=== PATIENT | male | born 1955 | race Hispanic/Latino ===

== ENCOUNTER 2017-12-27 00:25 | Observation (INO) | payer OTHER ==
--- NOTE | 2017-12-27 00:32 | ED PDOC ---
Arrival/HPI - General Time Seen by Provider: 12/27/17 00:26 Historian: Patient, Spouse, EMS - History of Present Illness Narrative History of Present Illness (Text): 12/27/17 00:32 Mahendra Ojeda is a 62 year old male smoker, whose past medical history includes atrial fibrillation on Eliquis and hypertension, who presents to the Emergency department brought in by ALS complaining of shortness of breath. Patient states he woke up with sudden onset of severe shortness of breath and palpitations prior to arrival. Patient and his walked in to the EMS garage, who brought patient to the ED for further evaluation. Patient denies any fever, chills, demetrio st pain, abdominal pain, headache, dizziness, or any other complaints. Wood Bucker: Dr. Schmitz Time/Duration: Prior to Arrival Symptom Onset: Sudden Symptom Course: Unchanged Activities at Onset: Light Context: Walking Past Medical History - Provider Review Nursing Documentation Reviewed: Yes Family/Social History - Physician Review Nursing Documentation Reviewed: Yes Family/Social History: Unknown Family HX Allergies/Home Meds Allergies/Adverse Reactions: Allergies No Known Allergies Allergy (Verified 12/27/17 00:39) Home Medications: Home Meds Medication Instructions Recorded Confirmed Apixaban [Eliquis] 5 mg PO DAILY 12/27/17 12/27/17 Metoprolol Succinate [Kapspargo 100 mg PO DAILY 12/27/17 12/27/17 Sprinkle] Rosuvastatin Calcium 10 mg PO QPM 12/27/17 12/27/17 Valsartan [Diovan] 160 mg PO DAILY 12/27/17 12/27/17 Review of Systems - Physician Review All systems were reviewed & negative as marked: Yes - Review of Systems Constitutional: Normal. absent: Fevers Eyes: Normal ENT: Normal Respiratory: SOB Cardiovascular: Palpitations Gastrointestinal: Normal. absent: Abdominal Pain, Diarrhea, Nausea, Vomiting Genitourinary Male: Normal. absent: Dysuria, Frequency, Hematuria, Urinary Output Changes Musculoskeletal: Normal. absent: Back Pain, Neck Pain Skin: Normal. absent: Rash Neurological: Normal. absent: Headache, Dizziness Endocrine: Normal Hemo/Lymphatic: Normal Psychiatric: Normal Physical Exam Vital Signs Reviewed: Yes Temperature: Afebrile Blood Pressure: Hypertensive Pulse: Tachycardic Respiratory Rate: Normal Appearance: Positive for: Well-Appearing, Non-Toxic, Comfortable Pain Distress: None Mental Status: Positive for: Alert and Oriented X 3 - Systems Exam Head: Present: Atraumatic, Normocephalic Pupils: Present: PERRL Extroacular Muscles: Present: EOMI Conjunctiva: Present: Normal Mouth: Present: Moist Mucous Membranes Neck: Present: Normal Range of Motion Respiratory/Chest: Present: Rhonchi (Rhonchi bilaterally). No: Respiratory Distress, Accessory Muscle Use Cardiovascular: Present: Normal S1, S2, Irregular Rhythm (Irregular, regular rhythm), Tachycardic. No: Murmurs Abdomen: No: Tenderness, Distention, Peritoneal Signs Back: Present: Normal Inspection Upper Extremity: Present: Normal Inspection. No: Cyanosis, Edema Lower Extremity: Present: Normal Inspection. No: Edema Neurological: Present: GCS=15, CN II-XII Intact, Speech Normal Skin: Present: Warm, Dry, Normal Color. No: Rashes Psychiatric: Present: Alert, Oriented x 3, Normal Insight, Normal Concentration Medical Decision Making ED Course and Treatment: 12/27/17 00:32 Impression: 62 year old male complaining of sudden onset of shortness of breath and palpitations tonight. Plan: -- EKG -- Chest X-ray -- Labs, cardiac enzymes, BNP, D-dimer -- Duoneb -- Reassess and disposition Progress Notes: Reviewed EKG, a fib at [address] bpm[address] Non-specific ST/T wave changes. 12/27/17 02:02 CXR reviewed, shows: The cardiac silhouette is moderately enlarged. There is mild central pulmonary venous congestion. There is bilateral peribronchial interstitial thickening suggestive of bronchitis. There are changes of degenerative joint disease. Impression: Congestive heart failure. Bronchitis. Electronically signed on Dec 27, 2017 1:49:50 AM EDT by: Marla Branham M.D., Certified by ABR, MSK, Neuroradiology 12/27/17 02:16 Reviewed repeat EKG, NSR at 77 bpm. 1st degree AV block. No acute changes Case discussed with Dr. Will, who is aware and agrees with plan. Accepts pt in to her service. Pt will Telemetry observation for dyspnea. Requests Dr. Schmitz on consult. - Lab Interpretations I have reviewed the lab results: Yes - RAD Interpretation Tool Grinding Technician: Radiologist - EKG Interpretation Interpreted by ED Physician: Yes Type: 12 lead EKG - Scribe Statement The provider has reviewed the documentation as recorded by the Scribe Stephanie Garduno Provider Scribe Attestation: All medical record entries made by the Susannahibe were at my direction and personally dictated by me. I have reviewed the chart and agree that the record accurately reflects my personal performance of the history, physical exam, medical decision making, and the department course for this patient. I have also personally directed, reviewed, and agree with the discharge instructions and disposition. Disposition/Present on Arrival - Present on Arrival Any Indicators Present on Arrival: No History of DVT/PE: No History of Uncontrolled Diabetes: No Urinary Catheter: No History of Decub. Ulcer: No History Surgical Site Infection Following: None - Disposition Have Diagnosis and Disposition been Completed?: Yes Diagnosis: Dyspnea, Paroxysmal atrial fibrillation with rapid ventricular response Disposition: HOSPITALIZED Disposition Time: 02:27 Condition: STABLE
[2017-12-27 00:40] VITALS: BMI 26.6
[2017-12-27] MEDS ORDERED: Albuterol-Ipratrop 3 mg / 0.5 (3 ml) UD IH STA (00:43)
[2017-12-27 00:54] LABS: HEMOGLOBIN 17.3 g/dL (14.0-18.0); MEAN CORPUSCULAR HEMOGLOBIN 33.9 pg (25.0-35.0); MEAN CORPUSCULAR HGB CONC 33.5 g/dl (31.0-37.0); MEAN PLATELET VOLUME 9.9 fl (7.0-11.0); RBC 5.11 10^6/uL (3.5-6.1); RED CELL DISTRIBUTION WIDTH 13.2 % (11.5-14.5); WHITE BLOOD COUNT 13.4 10^3/ul (4.5-11.0)
[2017-12-27 01:23] LABS: ALB/GLOB RATIO 1.6 (1.1-1.8); ALBUMIN 4.3 g/dL (3.0-4.8); ALT/SGPT 61 U/L (7-56); AST/SGOT 32 U/L (17-59); BLOOD UREA NITROGEN 11 mg/dL (7-21); CALCIUM 8.9 mg/dL (8.4-10.5); GFR NON-AFRICAN AMERICAN > 60
[2017-12-27 01:25] LABS: INR 0.94; PARTIAL THROMBOPLASTIN TIME 27.3 Seconds (25.1-36.5); PROTHROMBIN TIME 10.7 SECONDS (9.4-12.5)
[2017-12-27 01:28] LABS: D DIMER < 200 ng/mlDDU (0-243)
[2017-12-27 01:35] LABS: B-TYPE NATRIURETIC PEPTIDE 230 pg/mL (0-450); TROPONIN I 0.02 ng/mL
[2017-12-27] MEDS ORDERED: cefTRIAXone 1 gm 1 GM/100 ML BAG IV STA (02:22)
[2017-12-27] MEDS ORDERED: Azithromycin 500MG/NS 250ml 500 MG/250 ML BAG IV STA (02:22)
[2017-12-27] MEDS: Albuterol-Ipratrop 3 mg / 0.5 (3 ml) UD IH PRN (05:40)
[2017-12-27 09:33] LABS: URINE BILIRUBIN NEGATIVE (NEGATIVE); URINE BLOOD TRACE-LYSED (NEGATIVE); URINE GLUCOSE (UA) NEGATIVE (NEGATIVE); URINE LEUKOCYTE ESTERASE NEGATIVE Leu/uL (NEGATIVE); URINE PROTEIN NEGATIVE mg/dL (<30 mg/dL); URINE UROBILINOGEN 0.2 E.U./dL (<1 E.U./dL)
[2017-12-27 09:34] LABS: URINE APPEARANCE CLEAR (CLEAR); URINE COLOR YELLOW (YELLOW)
[2017-12-27 09:49] LABS: URINE AMORPHOUS SEDIMENT FEW; URINE BACTERIA MANY (NEG); URINE EPITHELIAL CELLS 0 - 2 /hpf (0-5); URINE WBC 0 - 2 /hpf (0-6)
--- NOTE | 2017-12-27 09:58 | CARD ---
APPROVED REPORT Date of service: 12/27/2017 EKG Measurement Heart [id number] <Conclusion> Atrial fibrillation with rapid ventricular response [id number] changes
--- NOTE | 2017-12-27 10:01 | CARD ---
APPROVED REPORT Date of service: 12/27/2017 EKG Measurement Heart [id number] <Conclusion> Sinus rhythm with 1st degree AV block LAD AF with RVR no longer present
--- NOTE | 2017-12-27 10:14 | CARD ---
APPROVED REPORT Date of service: 12/27/2017 EKG Measurement Heart [id number] <Conclusion> Normal sinus rhythm with 1st degree AVB
--- NOTE | 2017-12-27 11:22 | RAD ---
Date of service: 12/27/2017 HISTORY: sob COMPARISON: No prior. FINDINGS: LUNGS: No focal infiltrates identified. PLEURA: No significant pleural effusion identified, no pneumothorax apparent. CARDIOVASCULAR: No atherosclerotic calcification present Cardiomegaly, pulmonary vascular congestion and interstitial edema. OSSEOUS STRUCTURES: No significant abnormalities. VISUALIZED UPPER ABDOMEN: Normal. OTHER FINDINGS: None. IMPRESSION: Mild CH Concordant findings (preliminary report) provided by [facility].
[2017-12-27] MEDS: Levalbuterol 0.63 MG/3 ML Inhal Soln UD IH SCH ×2 (13:52→19:55)
[2017-12-27] MEDS ORDERED: Potassium Chloride 20 mEq ER Tab PO ONE (15:04)
--- NOTE | 2017-12-27 20:43 | CON ---
DATE: 12/27/2017 CONSULTATION INDICATIONS: Shortness of breath, paroxysmal atrial fibrillation. HISTORY OF PRESENT ILLNESS: This is a 62-year-old male with a history of atrial fibrillation, who developed acute shortness of breath with heart racing and diaphoresis. He walked over to [facility] [place] and was taken to the emergency room. While in the emergency room, he had an EKG showing atrial fibrillation with rapid ventricular response. This apparently reverted to sinus rhythm. His symptoms resolved. This morning, he is resting comfortably in bed. 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 There was no chest pain. There is no orthopnea, PND, syncope, presyncope, lightheadedness, dizziness or vertigo. There are no ischemic-like symptoms, claudication, fever, chills, cough, sputum production, or hemoptysis. There is no abdominal pain, nausea, vomiting, diarrhea, constipation, melena. PAST MEDICAL HISTORY: Notable for cigarette smoking, hypertension, paroxysmal atrial fibrillation. He reports having a fairly recent cardiac cath which was normal. There is no history of rheumatic fever, myocardial infarction, angina, congestive heart failure, stroke, TIA, diabetes or gout. MEDICATIONS: At the time of admission include Eliquis, metoprolol, Crestor, and valsartan. ALLERGIES: There are no medication allergies reported. SOCIAL HISTORY: He lives at home. He is a smoker. He does not drink alcohol significantly. He is ambulatory. FAMILY HISTORY: Noncontributory. REVIEW OF SYSTEMS: A 10-point review of systems otherwise unremarkable except as noted above. PHYSICAL EXAMINATION: GENERAL: He is a well-developed male, resting in bed on telemetry, in no acute distress. VITAL SIGNS: Notable for sinus rhythm. He is afebrile. Pulse 78, blood pressure 148/86, respirations 18, O2 sat 98% on nasal cannula. HEENT: Exam reveals no neck vein distention, thyromegaly, carotid bruits. Mucous membranes moist. Conjunctivae pink. NECK: Supple. LUNGS: Lung landa clear. CARDIAC: Examination of the heart revealed a regular rhythm. Normal first and second heart sounds. PMI not palpable. ABDOMEN: Soft. Bowel sounds present. No mass, organomegaly, tenderness, rebound, guarding, CVA tenderness, or palpable abdominal aortic aneurysm. EXTREMITIES: Extremity exam revealed no cyanosis, clubbing or edema. There is no Homans' sign present. NEUROLOGICAL: Awake, alert and oriented. PSYCHIATRIC: Normal as to mood and affect. SKIN: Warm and dry. No rash or cellulitis. LABORATORY DATA: EKG initially showed atrial fibrillation with rapid ventricular response. There is a leftward axis, poor R-wave progression, nonspecific ST wave changes. Repeat EKG shows sinus rhythm, first-degree heart block, no acute changes. The chest x-ray is not read yet. The initial interpretation in the ER was CHF, but my reading is no definite CHF or pleural effusion or infiltrate. We await the final radiologist interpretation. White count 13,400, hemoglobin 17.3, hematocrit 51.6, platelet count normal. PT/INR, PTT normal. D-dimer less than 200. Electrolytes, BUN, creatinine, blood sugar unremarkable. Mild elevation of the ALT, CK 51. Two troponins are negative. BNP 230. IMPRESSION: The patient is a 62-year-old male smoker, who presented with acute shortness of breath, was found to have atrial fibrillation with rapid ventricular response. The symptoms and the atrial fib resolved in the emergency room. He was admitted to telemetry where he is resting comfortably today. There was no chest pain. There is no evidence of acute myocardial infarction. At this time, I will resume his metoprolol and Eliquis. I will review his office records and cath report. I will order an echocardiogram and a TSH level. He can be out of bed to a chair. We will check stool for occult blood. He will be on telemetry. I will follow along with you. I will make additional recommendations based on his clinical course. Enoch Hwang MD [facility]
[2017-12-28] MEDS: Albuterol-Ipratrop 3 mg / 0.5 (3 ml) UD IH PRN (03:37)
[2017-12-28 03:46] VITALS: O2SAT 97
[2017-12-28 07:09] LABS: BASO # 0.02 K/mm3 (0.0-2.0); BASO % 0.2 % (0.0-3.0); EOS # 0.2 (0.0-0.7); EOS % 2.1 % (1.5-5.0); GRAN # 6.67 (1.4-6.5); GRAN % 67.1 % (50.0-68.0); HEMOGLOBIN 15.7 g/dL (14.0-18.0); LYMPH # 2.2 (1.2-3.4); LYMPH % 21.7 % (22.0-35.0); MEAN CELL VOLUME 100.4 fl (80.0-105.0); MEAN CORPUSCULAR HEMOGLOBIN 33.8 pg (25.0-35.0); MEAN CORPUSCULAR HGB CONC 33.6 g/dl (31.0-37.0); MEAN PLATELET VOLUME 9.7 fl (7.0-11.0); MONO # 0.9 (0.1-0.6); MONO % 8.9 % (1.0-6.0); RBC 4.65 10^6/uL (3.5-6.1); RED CELL DISTRIBUTION WIDTH 13.1 % (11.5-14.5); WHITE BLOOD COUNT 9.9 10^3/ul (4.5-11.0)
[2017-12-28 07:22] LABS: ALB/GLOB RATIO 1.5 (1.1-1.8); ALT/SGPT 41 U/L (7-56); AST/SGOT 23 U/L (17-59); BLOOD UREA NITROGEN 15 mg/dL (7-21); CALCIUM 8.9 mg/dL (8.4-10.5); GFR NON-AFRICAN AMERICAN > 60; HDL CHOLESTEROL 43 mg/dL (29-60)
[2017-12-28 07:26] LABS: LDL CHOLESTEROL 118 mg/dL (0-129)
[2017-12-28] MEDS: Levalbuterol 0.63 MG/3 ML Inhal Soln UD IH SCH (07:36)
[2017-12-28 07:38] LABS: FREE T4 1.02 ng/dL (0.78-2.19)
--- NOTE | 2017-12-28 07:54 | CP.PCM.PN ---
Subjective - Date & Time of Evaluation Date of Evaluation: 12/28/17 Time of Evaluation: 07:00 - Subjective Subjective: Stable on 2R. He feels well. No CP or SOB. V/S noted. RSR. PE: Lungs: clear Cor.: S1S2 Abd.: soft Ext.: no edema Neuro.: alert I/O= 1380/777 Labs noted: BMP, CBC OK, LDL = 118, Free T4 NL BC X2 NG at 24 hrs. Echo: Nl LV. See report. Objective - Vital Signs/Intake and Output Vital Signs (last 24 hours): Temp Pulse Resp BP Pulse Ox 98.7 F 74 19 180/80 H 97 12/28/17 05:22 12/28/17 06:02 12/28/17 05:22 12/28/17 06:02 12/28/17 00:01 Intake and Output: 12/28/17 12/28/17 06:59 18:59 Intake Total 1380 Output Total 777 Balance 603 - Medications Medications: Current Medications Apixaban (Eliquis) 5 mg PO BID [facility]; Protocol Last Admin: 12/27/17 21:16 Dose: 5 mg Azithromycin (Zithromax) 500 mg PO DAILY [facility]; Protocol Clonidine HCl (Catapres) 0.1 mg PO Q4H PRN PRN Reason: hypertension Last Admin: 12/28/17 06:02 Dose: 0.1 mg Home Med (Home Med) 1 unit PO DIN [facility] Last Admin: 12/27/17 21:17 Dose: 1 unit Ceftriaxone Sodium (Rocephin 1 Gram Ivpb) 1 gm in 100 mls @ 100 mls/hr IVPB DAILY [facility]; Protocol Levalbuterol HCl (Xopenex) 0.63 mg IH TIDRESP [facility] Last Admin: 12/28/17 07:36 Dose: 0.63 mg Losartan Potassium (Cozaar) 100 mg PO DAILY [facility] Last Admin: 12/27/17 09:54 Dose: 100 mg Metoprolol Tartrate (Lopressor) 50 mg PO BID [facility] Last Admin: 12/27/17 21:17 Dose: 50 mg - Labs Labs: 12/28/17 06:00 12/28/17 06:00 PT 10.7 SECONDS (9.4-12.5) 12/27/17 01:04 INR 0.94 12/27/17 01:04 APTT 27.3 Seconds (25.1-36.5) 12/27/17 01:04 Assessment and Plan - Assessment and Plan (Free Text) Assessment: Dyspnea AF with RVR HBP H/O cath: Nl cors, Nl LV ~ 2016 Plan: Continue metoprolol, Eliquis and Crestor. Antihypertensives as per Dr. Suman LOZOYA ad gayla Check Abd. and Renal U/S results. Possible d/c home later today with out-pt cardiology f/u.
[2017-12-28 08:03] LABS: BILIRUBIN,DIRECT 0.4 mg/dL (0.0-0.4)
--- NOTE | 2017-12-28 09:58 | CARD ---
APPROVED REPORT Date of service: 12/27/2017 EXAM: Two-dimensional and M-mode echocardiogram with Doppler and color Doppler. Other Information Quality : FairRhythm : INDICATION Dyspnea HBP. PAF 2D DIMENSIONS Left Atrium (2D)4.0 (1.6-4.0cm)IVSd1.1 (0.7-1.1cm) LVDd4.8 (3.9-5.9cm)PWd1.0 (0.7-1.1cm) LVDs3.4 (2.5-4.0cm)FS (%) 29.2 % LVEF (%)56.0 (>50%) M-Mode DIMENSIONS Aortic Root3.10 (2.2-3.7cm)Aortic Cusp Exc.1.90 (1.5-2.0cm) Aortic Valve AoV Peak Shugtbva263.0cm/s Mitral Valve MV E Mrhbmope595.0cm/sMV A Flqzzdxl54.3cm/sE/A ratio2.2 TDI E/Lateral E'0.0E/Medial E'0.0 Tricuspid Valve TR Peak Fzaioets339mi/sRAP [id number] Peak Gr.16mmHg [id number] LEFT VENTRICLE The left ventricle is normal size. There is normal left ventricular wall thickness. The left ventricular function is normal. The left ventricular ejection fraction is within the normal range. There is normal LV segmental wall motion. RIGHT VENTRICLE The right ventricle is normal size. ATRIA The left atrium size is normal. The right atrium size is normal. The interatrial septum is intact with no evidence for an atrial septal defect. AORTIC VALVE The aortic valve is normal in structure. MITRAL VALVE The mitral valve is normal in structure. Mitral regurgitation is trace. TRICUSPID VALVE The tricuspid valve is normal in structure. There is trace tricuspid regurgitation. PULMONIC VALVE The pulmonic valve is not well visualized. There is trace pulmonic valvular regurgitation. <Conclusion> The left ventricle is normal size. There is normal left ventricular wall thickness. The left ventricular function is normal.
[2017-12-28] MEDS ORDERED: cefTRIAXone 1 gm 1 GM/100 ML BAG IVPB SCH (10:00)
--- NOTE | 2017-12-28 10:14 | HP ---
DATE OF EXAM: 12/27/2017 HISTORY OF PRESENT ILLNESS: This 62-year-old male was examined at his bedside on the Cardiac Unit at the [facility] on the afternoon of 12/27/2017. The patient had presented to [facility] earlier this morning. He told me he had awoken this morning with shortness of breath and palpitations. He immediately dressed and readied himself for presentation to the local emergency room. He said that while his was driving him to the ER, he became so short of breath that he requested her to stop at the local EMS office of [facility], so that he could get some oxygen treatment. While he was there, the paramedics applied nasal O2, then a Ventimask of O2 and transported him by ambulance to ER. There, he was noted to be in rapid atrial fibrillation, overt congestive heart failure and with clinical and radiographic evidence of CHF. He is admitted for further evaluation of the above. The patient states he has no primary care physician. He follows with Dr. Markell Schmitz from Cardiology and first requested his assistance approximately 1 year ago. He states that he was evaluated by Dr. Schmitz with previous cardiac cath, EKG and echocardiogram, all of which he reports were unremarkable. SOCIAL HISTORY: The patient is a current smoker. 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 He works with the [employer]. ALLERGIES: HE STATES HE HAS NO KNOWN ALLERGIES TO MEDICATION. MEDICATIONS: His outpatient medication included Eliquis 5 mg b.i.d., Diovan 160 mg p.o. daily, Crestor 10 mg p.o. daily and metoprolol succinate 100 mg p.o. daily. The patient admits to chronic hypertension, chronic atrial fibrillation and it should be noted that in the emergency room once the patient was given a treatment with DuoNeb nebulizer, he converted into a normal sinus rhythm on the cardiac tech. FAMILY HISTORY: Significant for two siblings dying with aortic abdominal aneurysm. Parental history is significant for mother dying of lung cancer and father of an acute myocardial infarction. The patient states he has had a hernia repair and tonsillectomy as a child. Denies any other surgical history and states he has never been hospitalized for any medical issues in the recent past. REVIEW OF SYSTEMS: Constitutional review: Denied fever or chills. Head review: No headache or seizure. Eyes review: No change in visual acuity. Ear review: No hearing loss. Throat review: No swallowing difficulty. Neck review: No stiffness. Cardiac review: Chronic hypertension and as per HPI. Pulmonary: No cough. No hemoptysis. GI: No hematemesis. No melena. : No dysuria. Skin: No rash. Vascular: No claudication. Psychological: No knowledge of depression. Neurological: No knowledge of stroke. PHYSICAL EXAMINATION: VITAL SIGNS: At the time of my interview, the patient was alert, oriented, wearing nasal O2, denying any fever, chills, chest pain or shortness of breath. Temperature was 97.9, respirations 18, pulse 68 and blood pressure 157/78. Monitor showed normal sinus rhythm. HEAD: Normocephalic, atraumatic. Eyes: No icterus. Ears clear. Throat: Noninjected. NECK: Supple. HEART: Was regular S1, S2. No pathological rubs, murmurs or gallops. LUNGS: Basilar crackles bilaterally. ABDOMEN: Soft. EXTREMITIES: No edema. SKIN: Without rash. NEUROLOGICAL: Intact. PSYCHOLOGICAL: Alert and oriented x3. Vascular: Legs warm to touch. LABORATORY DATA: White count 13,400, hemoglobin 17.3, hematocrit 51.6, platelets 210,000. PT/INR 0.94, PTT 27.3. Sodium 140, K 4.6, chloride 106, bicarb 26, BUN 11, creatinine 1.1, random blood sugar 122, calcium 8.9. Bilirubin 0.5, AST 32, ALT 61, alk phos 35. CPK 51 with a troponin of 0.02 and a BNP of 230. Free T4 was normal at 1.02. Repeat troponin was 0.02. Urinalysis showed 2-5 RBCs per high-power field. Chest x-ray was reviewed. It showed no focal infiltrates, no pleural effusion. It did show cardiomegaly with CHF and interstitial edema. EKG was reviewed. Initial emergency room EKG showed atrial fibrillation with rapid ventricular response and nonspecific ST-T wave changes and EKG performed on the Cardiac Unit showed a normal sinus rhythm with first-degree AV block and no further presence of atrial fibrillation. At the time of my interview, the patient was in a normal sinus rhythm. IMPRESSION: A 62-year-old male with history of chronic atrial fibrillation, now with exacerbation of chronic obstructive pulmonary disease, leukocytosis, acute congestive heart failure, probably secondary to rapid ventricular rate, now with conversion to normal sinus rhythm with comorbidities of hyperlipidemia, chronic hypertension, obesity, persistent cigarette smoking, leukocytosis and elevated liver function testing. PLAN: As discussed with the patient at bedside and also reviewed with his nurse, Rio Thompson, registered nurse, the patient will be scheduled for 2-D echocardiography and blood cultures have been sent. He will be given Lasix 20 mg IV x1 dose and potassium chloride, K-Dur 20 mEq p.o. x1 dose because of accelerated hypertension and his chest x-ray findings of congestive heart failure. I have ordered clonidine 0.1 mg p.o. every 4 hours p.r.n. accelerated hypertension if systolic blood pressure should be greater than 160 or diastolic blood pressure should be greater than 100. He is ordered to receive Cozaar 100 mg p.o. daily Eliquis 5 mg p.o. b.i.d., Crestor 10 mg p.o. daily, Lopressor 50 mg p.o. b.i.d., Rocephin 1 g IV every 24 hours, Xopenex inhalational therapy t.i.d., Zithromax 500 mg p.o. daily and I have requested an aortic abdominal ultrasound to rule out aortic aneurysm given strong family history. He will be scheduled for a heart-healthy soft bland diet. He is ordered to be out of bed to chair as tolerated to ambulate with assistance, to have I's and O's recorded and stool for occult blood. I will order a PSA and a renal ultrasound for completeness sake as well as repeat laboratories including CBC and basic metabolic panel for the morning. Based on his clinical progress and findings, additional workup and diagnostic testings will be entertained. I will discuss this case with Dr. Enoch Hwang from Cardiology and greater than 75 minutes was spent in the care management, review of labs, x-rays, EKGs, medication and outlining of orders for this patient today. All questions were answered. Nelly Will MD [facility]
[2017-12-28 11:52] VITALS: BP 138/92; PULSE 67; RESP 18; TEMP 98.4
--- NOTE | 2017-12-28 12:06 | US ---
Date of service: 12/28/2017 PROCEDURE: Ultrasound of the Kidneys HISTORY: microhematuria COMPARISON: None available. TECHNIQUE: Sonogram of the kidneys. FINDINGS: RIGHT KIDNEY: Measures: 11.4 x 5.2 x 6.4 cm. Normal in size, contour and echogenicity. No stone, solid mass lesion or hydronephrosis visualized. LEFT KIDNEY: Measures: 12.2 x 5.2 x 4.9 cm. Normal in size, contour and echogenicity. No stone, solid mass lesion or hydronephrosis visualized. OTHER FINDINGS: None. IMPRESSION: Unremarkable renal sonogram.
--- NOTE | 2017-12-28 12:30 | US ---
PROCEDURE: 1. Duplex ultrasound of the abdominal aorta. HISTORY: Abdominal aortic aneurysm. PHYSICIAN(S): Rishabh Albrecht MD. FINDINGS: The exam is very limited by bowel gas. The visualized abdominal aorta is normal in caliber without evidence of a abdominal aortic aneurysm. Mild diffuse atherosclerotic disease is noted. Limited imaging of the common iliac arteries proximally are normal in caliber. IMPRESSION: 1. No sonographic evidence of an abdominal aortic aneurysm
--- NOTE | 2017-12-29 13:37 | DS ---
HISTORY OF PRESENT ILLNESS: This 62-year-old male was examined at his bedside and cleared for discharge on the afternoon of 12/28/2017. Present for his discharge interview was nurse, Emy Ma, registered nurse. FINAL DIAGNOSES: Paroxysmal atrial fibrillation with rapid ventricular response, congestive heart failure improved, hyperlipidemia, accelerated hypertension, bronchitis. DISPOSITION: Home. The patient Is instructed to follow up in my office on 01/03/2018. The patient was seen by Dr. Enoch Hwang from Cardiology and cleared for discharge to home. DISCHARGE DIET: 2 g sodium, heart-healthy. DISCHARGE MEDICATIONS: Eliquis 5 mg p.o. b.i.d., Diovan 160 mg p.o. daily, Crestor 10 mg p.o. daily, metoprolol succinate 100 mg p.o. daily and Zithromax 250 mg p.o. daily, #5, no refill. 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 He was noted to have microhematuria, chronic hypertension and elevated white count on admission, which prompted blood cultures. These showed no growth at 48 hours. A chest x-ray was consistent with CHF and the patient underwent an echocardiogram that was unremarkable. It showed normal left ventricular wall motion, size and normal ejection fraction with a normal left atrial size as well. Initial EKG showed atrial fibrillation with rapid ventricular response. A followup EKG showed normal sinus rhythm with primary AV block. Chest x-ray on admission showed CHF, an aortic ultrasound was reviewed that was unremarkable and a renal ultrasound showed normal kidneys with no stone, mass or hydronephrosis. At the time of discharge, his temperature was 98.4, respirations 18, pulse 67 and blood pressure 138/92. Labs showed white count 9900, hemoglobin 15.7, hematocrit 46.7, platelets 173,000. Sodium 140, K 3.9, chloride 105, bicarb 27, BUN 15, creatinine 1.0, random blood sugar 103. Bilirubin 1.7, high normal being 1.3 or less. However, direct bilirubin was 0.4, normal. AST 23, ALT 41, alk phos 40. Troponin 0.02 x2. CPK normal 51. Cholesterol 178, triglycerides 175, LDL 118 and HDL 43. PSA 2.3. T4 normal at 1.02. TSH normal at 1.93. Urinalysis showed 2-5 rbc's per high-power field with many bacteria and urine culture was not available. The patient is discharged to home and advised to follow up in my office on Wednesday. He was advised to follow up with Dr. Hwang, Cardiology and has been strongly admonished against cigarette smoking. Hopefully, he will be compliant with this recommendation and the patient was also advised to present directly to the [facility] ER for any further signs or symptoms related to his presenting diagnosis. Nelly Will MD MTDD
== END 2017-12-28 13:19 | disposition home or self-care (01) ==
LOC: ED 00:25 → ERH 02:28 → 2RSO 03:14 → INTOOBSV 15:02 → OBSVTOIN 15:02
PROVIDERS: ADMIT Internal Medicine; ATTEND Internal Medicine
DX: I48.0 Paroxysmal atrial fibrillation (principal); I11.0 Hypertensive heart disease with heart failure; I50.9 Heart failure, unspecified; J40 Bronchitis, not specified as acute or chronic; F17.200 Nicotine dependence, unspecified, uncomplicated; Z79.01 Long term (current) use of anticoagulants
CPT/HCPCS: 36415; 71045; 76770; 80053; 80061; 81001; 82248; 82550; 82948; 83615; 83880; 84153; 84439; 84443; 84484; 85025; 85027; 85378; 85610; 85730; 87040; 93005; 93306; 93978; 94640; 94760; 99285; G0378; J0456; J0696; J1940